=== PATIENT | female | born 1990 ===

== ENCOUNTER 2021-09-22 09:10 | Outpatient (CLI) | payer OTHER | END 2021-09-22 09:11 | disposition home or self-care (01) | LOC: RX STUDY 09:10 | PROVIDERS: ATTEND Obstetrics & Gynecology Gynecology | DX: N91.2 Amenorrhea, unspecified (principal); Z12.39 Encounter for other screening for malignant neoplasm of breast; N60.21 Fibroadenosis of right breast; N60.22 Fibroadenosis of left breast ==

== ENCOUNTER 2024-03-20 09:37 | Inpatient (IN) | payer OTHER ==
[~2024-03-20] VITALS: Ht 162.6 cm; Wt 71.2 kg
[2024-03-20] MEDS ORDERED: RINGERS SOLUTION,LACTATED 1,000 ML IV SCH (11:30)
[2024-03-20] MEDS ORDERED: OXYTOCIN 20 UNITS/500ML RL PIGGYBAG IV SCH (12:30)
[2024-03-20 12:37] LABS: URINE APPEARANCE Clear; URINE BILIRRUBIN Negative (NEGATIVE); URINE BLOOD Negative; URINE COLOR Yellow; URINE GLUCOSE Negative (NEGATIVE); URINE KETONE Negative (NEGATIVE); URINE LEUKOCYTE Moderate; URINE NITRATE Negative; URINE PROTEIN Negative (NEGATIVE); URINE UROBILINOGEN 0.2 E.U./dl
[2024-03-20 12:38] LABS: URINE EPITHELIAL CELLS 58.7 uL (0.0-38.8); URINE WBC 49.3 uL (0.0-23.2)
[2024-03-20] MEDS ORDERED: PRENATABS RX T1 EACH PO (12:38)
[2024-03-20] MEDS ORDERED: OXYTOCIN 500 ML IV SCH (12:45)
[2024-03-20 13:04] LABS: INR 0.98; PARTIAL THROMBOPLASTIN TIME 24.7 SECONDS (22.0-34.0); PROTHROMBIN TIME 10.3 SECONDS (9.0-11.5)
[2024-03-20 13:29] LABS: HEMATOCRIT 34.3 % (36.0-45.00); HEMOGLOBIN 11.6 g/dL (12.0-15.00); MEAN CORPUSCULAR HEMOGLOBIN 28.7 pg (27.00-32.0); MEAN CORPUSCULAR HGB CONC 33.7 g/dl (32.0-36.0); PLATELET COUNT 153 K/uL (150-450); RED BLOOD COUNT 4.04 M/uL (4.00-6.00); RED CELL DISTRIBUTION WIDTH 15.7 % (11.5-14.5)
[2024-03-20] MEDS ORDERED: PROMETHAZINE HCL 25 MG/ML AMPUL IV STA (17:54)
[2024-03-20] MEDS ORDERED: MEPERIDINE HCL/PF 25 MG/ML VIAL IV STA (17:54)
[2024-03-20] MEDS ORDERED: ACETAMINOPHEN 500 MG GEL..CAP PO PRN (18:45)
[2024-03-20] MEDS ORDERED: OXYTOCIN 1,000 ML IV SCH (18:45)
[2024-03-20] MEDS ORDERED: CHLORHEXIDINE GLUCONATE 120 ML BOTTLE TOP SCH (18:45)
[2024-03-20] MEDS ORDERED: ERYTHROMYCIN BASE 1 GM TUBE OP SCH (18:45)
[2024-03-20 23:10] LABS: HEMATOCRIT 35.6 % (36.0-45.00); MEAN CELL VOLUME 84.4 fL (80.00-100.00); MEAN CORPUSCULAR HGB CONC 32.6 g/dl (32.0-36.0); PLATELET COUNT 166 K/uL (150-450); RED BLOOD COUNT 4.22 M/uL (4.00-6.00); RED CELL DISTRIBUTION WIDTH 15.4 % (11.5-14.5)
[2024-03-20 23:11] LABS: HEMOGLOBIN 11.6 g/dL (12.0-15.00); MEAN CORPUSCULAR HEMOGLOBIN 27.4 pg (27.00-32.0)
[2024-03-21] MEDS ORDERED: PNV,CALCIUM 72/IRON/FOLIC ACID 1 TAB TABLET PO SCH (09:00)
== END 2024-03-22 13:08 | disposition home or self-care (01) | DRG 806 ==
LOC: PRENATAL 09:37 → LDR 11:27 → OB/GYN 18:59
PROVIDERS: ADMIT Obstetrics & Gynecology; ATTEND Obstetrics & Gynecology
PROC: 10E0XZZ Delivery of Products of Conception, External Approach (ICD-10-PCS; principal; 2024-03-20)
PROC: 4A1HXCZ Monitoring of Products of Conception, Cardiac Rate, External Approach (ICD-10-PCS; 2024-03-20)
PROC: BY4FZZZ Ultrasonography of Third Trimester, Single Fetus (ICD-10-PCS; 2024-03-20)
DX: O36.5930 Maternal care for other known or suspected poor fetal growth, third trimester, not applicable or unspecified (principal); O41.03X0 Oligohydramnios, third trimester, not applicable or unspecified; Z37.0 Single live birth; O36.8130 Decreased fetal movements, third trimester, not applicable or unspecified; O26.843 Uterine size-date discrepancy, third trimester; Z20.822 Contact with and (suspected) exposure to COVID-19; Z3A.38 38 weeks gestation of pregnancy